=== PATIENT | female | born 1930 | race Caucasian/White ===

== ENCOUNTER 2017-01-27 22:37 | Inpatient (IN) | payer MEDICARE, OTHER ==
--- NOTE | 2017-01-27 23:41 | EDM.PDOC ---
ED HPI GENERAL MEDICAL PROBLEM - General Chief Complaint: Genitourinary Problem Stated Complaint: [facility] Time Seen by Provider: 01/27/17 22:41 Source of Information: Reports: Patient, EMS, Family (2 sons and [id number] ), Old records, RN notes reviewed History Limitations: Reports: No limitations - History of Present Illness INITIAL COMMENTS - FREE TEXT/NARRATIVE: EMS arrival No treatment prior to arrival Chief complaint Urinary symptoms, generalized weakness, achiness HPI 86-year-old female who was living independently until a few months ago. In June she fell and sustained a fracture C3, never wore the brace very much because it was so uncomfortable, she still feels cracking in her neck. Decreasing mobility over the ensuing months, and in the last week she has a motorized wheelchair for use at home. Previously she was using a walker to get around. In the last 3 weeks she's had symptoms of urinary frequency, urgency, passing small amounts, and burning inside when she urinates. She was treated with a course of what sounds like one form of doxycycline for 10 days without improvement and is now on the sixth they have a second course of antibiotics doxycycline monohydrate. Still her urinary symptoms are unchanged. No fever but she has felt hot and cold lately She has chronic back pain which is gradually been getting worse. It is harder for her to move around. She's had 3 previous back surgeries. Since she fell in June she's had bad pain in the right shoulder with decreased mobility. She has chronic pain in her hips and knees and chronic fluid retention in her legs. History of coronary artery disease, myocardial infarction, multiple stents. Aortic stenosis. Ventral hernia History of chronic diarrhea but since she's been on a back she's had constipation more. She's been straining more to push out her stools and this is near hernia stand out more. She is not a candidate for surgical repair of her aortic valve, hernia, or joints because of her pre-existing health problems. Type 2 diabetes, with renal disease, chronic kidney disease. September this year she had echocardiogram showing decreased left ventricular function without focal wall motion abnormalities, ejection fraction 50-55%, moderately severe aortic stenosis. She also has a bedsore on the left buttock that has been present for over a year. On it tonight with her urinary symptoms the lack of improvement thereof, her generalized achiness, and weakness, she decided she couldn't take it anymore and asked her son to have her bring her to the emergency room. Unable to get her up because of her weakness, she was transferred by ambulance. There has been some discussion over the last few months about putting her into a long-term but would be expensive for her. She has been having someone stay with her for the last 3 months, has also had home care including physical therapy to help strengthen her muscles but it's reached a point that she is making little progress. - Related Data Allergies Allergy/AdvReac Type Severity Reaction Status Date / Time ciprofloxacin [From Cipro] Allergy Unknown Cannot Verified 01/28/17 00:17 Remember ciprofloxacin HCl Allergy Unknown Cannot Verified 01/28/17 00:17 [From Cipro] Remember flunisolide [From Aerobid] Allergy Unknown Cannot Verified 01/28/17 00:17 Remember lisinopril Allergy Unknown Cannot Verified 01/28/17 00:17 Remember morphine Allergy Unknown Confusion Verified 01/28/17 00:17 NSAIDS (Non-Steroidal Allergy Unknown Cannot Verified 01/28/17 00:17 Anti-Inflamma Remember pregabalin [From Lyrica] Allergy Unknown Confusion Verified 01/28/17 00:17 sulfamethoxazole Allergy Unknown Cannot Verified 01/28/17 00:17 [From Bactrim] Remember trimethoprim [From Bactrim] Allergy Unknown Cannot Verified 01/28/17 00:17 Remember [id number]-Clf-Jiz Reductase Allergy Cannot Verified 01/28/17 00:17 Inhibitor Remember amoxicillin [Amoxicillin] AdvReac Unknown Nausea Verified 01/28/17 00:17 rosuvastatin calcium AdvReac Unknown Muscle Verified 01/28/17 00:17 [From Crestor] Aches Home Meds: Home Meds Aspirin [Ecotrin] 81 mg PO DAILY 10/18/13 [History] Furosemide [Lasix] 40 mg PO BID 10/18/13 [History] Hydrocodone/Acetaminophen [[place] 10-325] 1 tab PO BID PRN 10/18/13 [History] Ketoconazole [Nizoral 2% Crm] 1 applic TOP BID PRN 10/18/13 [History] Levothyroxine Sodium [Synthroid] 112 mcg PO DAILY 10/18/13 [History] Nitroglycerin [Nitrostat] 0.4 mg SL ASDIRECTED PRN 10/18/13 [History] Ranitidine [Zantac] 150 mg PO BID 10/18/13 [History] Triamcinolone Acetonide [Kenalog 0.1% Crm] 1 applic TOP TID PRN 10/18/13 [ History] Citalopram [Citalopram HBr] 60 mg PO DAILY 12/08/13 [History] Gabapentin [Neurontin] 300 mg PO TID 04/15/15 [History] Spironolactone [Aldactone] 25 mg PO BID 04/15/15 [History] clonazePAM [Klonopin] 0.5 tab PO BID PRN 04/15/15 [History] Diclofenac Sodium [Voltaren 1%] 1 applic TOP BID PRN 04/17/16 [History] Metolazone [Zaroxolyn] 2.5 mg PO .MWF PRN 04/17/16 [History] Insulin Aspart [NovoLOG] 6 unit SQ TIDAC 07/22/16 [History] Insulin Detemir [Levemir] 18 unit SUBCUT BEDTIME 07/22/16 [History] Bifidobacterium Infantis [Align] 1 cap PO BID 01/28/17 [History] Calcitriol [Rocaltrol] 1 cap PO DAILY 01/28/17 [History] Sennosides/Docusate Sodium [Sennosides-Docusate Sodium] 1 tab PO BID PRN [History] Past Medical History HEENT History: Reports: Hard of hearing, Impaired vision Cardiovascular History: Reports: [place], Stents Gastrointestinal History: Reports: GERD Other Gastrointestinal History: hernia abd Genitourinary History: Reports: Urinary incontinence Other Genitourinary History: kidney dx Other Musculoskeletal History: fisssion lower spine Neurological History: Reports: Cerebral aneurysms Other Neuro History: 1981 no residual Psychiatric History: Reports: Depression Endocrine/Metabolic History: Reports: Diabetes, type II, Hypothyroidism Other Endocrine/Metabolic History: on insulin Other Oncologic History: "something by my eye, they said it was cancer but then they removed it and it's gone" Other Dermatologic History: c/o boil on coccyx - Infectious Disease History Infectious Disease History: Reports: Chicken pox, Measles, Mumps - Past Surgical History HEENT Surgical History: Reports: None Cardiovascular Surgical History: Reports: Coronary artery stent Other Neurological Surgeries/Procedures: vertabrae fusions Dermatological Surgical History: Reports: None Social & Family History - Tobacco Use Smoking Status *Q: Never Smoker Second Hand Smoke Exposure: No - Alcohol Use Days Per Week of Alcohol Use: 0 - Recreational Drug Use Recreational Drug Use: No ED ROS GENERAL - Review of Systems Review Of Systems: See Below Constitutional: Reports: chills (And flushes), weakness, fatigue, decreased appetite. Denies: fever, diaphoresis, weight loss HEENT: Reports: Hearing loss (Chronic). Denies: Ear pain, Rhinitis, Throat pain , Vision change Respiratory: Reports: Cough (Mild). Denies: Shortness of Breath, Pleuritic Chest Pain Cardiovascular: Reports: Dyspnea on exertion. Denies: Chest pain, Lightheadedness, Palpitations, Syncope Endocrine: Reports: fatigue GI/Abdominal: Reports: Abdominal pain, Constipation (More recently), Diarrhea ( Previously), Decreased appetite. Denies: Nausea, Vomiting : Reports: frequency, incontinence (Despite nocturia at night she often wakes up unaware that she's wet herself, has taken to wearing depends), urgency, other (Despite urgency to urinate often passes very little urine). Denies: dysuria Musculoskeletal: Reports: shoulder pain (Especially on the right), leg pain ( Especially both hips), joint swelling (Knees), other (Edema of the lower extremities) Skin: Reports: dryness, erythema (Redness and thickening of the skin below the knees bilaterally) Neurological: Reports: Numbness, Paresthesia, Difficulty Walking (Generalized weakness). Denies: Confusion, Syncope, Tremors Psychiatric: Reports: Anxiety, Other (Frustration) Hematologic/Lymphatic: Reports: no symptoms Immunologic: Reports: no symptoms ED EXAM, GENERAL - Physical Exam Exam: See Below Exam Limited By: No limitations General Appearance: alert, mild distress, other (Alert, responds appropriately to all questions, mood generally downcast, achy with any movement, vital signs show mild elevation of blood pressure otherwise within normal limits, afebrile) Eye Exam: bilateral eye: EOMI, normal inspection Ears: normal external exam, normal canal, hearing loss (Chronic, hearing on the left) Nose: normal inspection, normal mucosa Throat/Mouth: Normal oropharynx, Normal voice, Other (Most molar is missing, there are 2 worn off molar stumps that are infected) Neck: supple, limited range of motion. No: lymphadenopathy (R), lymphadenopathy (L), tender lateral Respiratory/Chest: no respiratory distress, lungs clear, normal breath sounds, no accessory muscle use Cardiovascular: regular rate, rhythm, systolic murmur (Loudest in the right parasternal area) GI/Abdominal: normal bowel sounds, soft, non tender, no organomegaly, hernia ( Central abdominal hernia) Rectal (Female) Exam: Other (On the medial aspect of the left buttock is a 2 cm diameter shallow erosion with a dry eschar) Extremities: pedal edema (Extending up to the ankles and to the mid calfs with lichenification and peau d'orange appearance of the skin), leg pain, limited range of motion (Decreased range of motion knees and hips, swelling of the knees bilaterally, chronic), redness (Of the edematous areas of the legs). No: increased warmth Neurological: alert, normal cognition, no motor/sensory deficits Psychiatric: anxious, depressed mood. No: tearful Skin Exam: Warm, Dry, Normal color, Other (Stasis changes of the legs) Course - Vital Signs Last Recorded V/S: Last Vital Signs Temp 36.5 C 01/27/17 22:45 Pulse 76 01/27/17 23:30 Resp 18 01/27/17 23:30 BP 149/43 H 01/27/17 23:30 Pulse Ox 93 L 01/27/17 23:30 - Orders/Labs/Meds Orders: Active Orders 24 hr Category Date Time Status EKG Documentation Completion [RC] ASDIRECTED Care 01/27/17 23:25 Active Insert Urinary Catheter [OM.PC] Q24H Care 01/27/17 23:30 Ordered Urinary Catheter Assessment [RC] ASDIRECTED Care 01/27/17 23:25 Active Chest 1V Frontal [CR] Stat Exams 01/27/17 23:25 Taken CULTURE URINE [RM] Stat Lab 01/28/17 01:03 Ordered EKG 12 Lead [EK] Routine Ther 01/27/17 23:25 Ordered Labs: Laboratory Tests 01/27/17 01/27/17 01/28/17 Range/Units 23:25 23:25 00:15 WBC 9.0 (4.5-11.0) K/uL RBC 4.02 (3.30-5.50) M/uL Hgb 11.8 L (12.0-15.0) g/dL Hct 36.5 (36.0-48.0) % MCV 91 (80-98) fL MCH 29 (27-31) pg MCHC 32 (32-36) % Plt Count 246 (150-400) K/uL Sodium 138 L (140-148) mmol/L Potassium 4.2 (3.6-5.2) mmol/L Chloride 101 (100-108) mmol/L Carbon Dioxide 32 (21-32) mmol/L Anion Gap 9.2 (5.0-14.0) mmol/L BUN 41 H (7-18) mg/dL Creatinine 1.7 H (0.6-1.0) mg/dL Est Cr Clr Drug Dosing 17.59 mL/min Estimated GFR (MDRD) 28 L (>60) Glucose 103 (74-106) mg/dL Calcium 8.1 L (8.5-10.1) mg/dL Total Bilirubin 0.4 (0.2-1.0) mg/dL AST 15 (15-37) U/L ALT 22 (12-78) U/L Alkaline Phosphatase 97 (46-116) U/L Troponin I < 0.017 (0.000-0.056) ng/mL Total Protein 6.9 (6.4-8.2) g/dL Albumin 3.3 L (3.4-5.0) g/dL Globulin 3.6 H (2.3-3.5) g/dL Albumin/Globulin Ratio 0.9 L (1.2-2.2) Urine Color Yellow Urine Appearance Clear Urine pH 5.0 (4.5-8.0) Ur Specific [place] 1.015 (1.008-1.030) Urine Protein Negative (NEGATIVE) mg/dL Urine Glucose (UA) Normal (NEGATIVE) mg/dL Urine Ketones Negative (NEGATIVE) mg/dL Urine Occult Blood Negative (NEGATIVE) Urine Nitrite Negative (NEGATIVE) Urine Bilirubin Negative (NEGATIVE) Urine Urobilinogen Normal (NORMAL) mg/dL Ur Leukocyte Esterase Negative (NEGATIVE) Urine RBC 0-5 (0-5) Urine WBC 0-5 (0-5) Ur Epithelial Cells Few Amorphous Sediment Moderate Urine Bacteria Rare Urine Mucus Few Meds: Medications Discontinued Medications Generic Name Dose Route Start Last Admin Trade Name Freq PRN Reason Stop Dose Admin Hydrocodone Bitart/Acetaminophen 1 tab 01/27/17 23:44 01/28/17 00:05 [place] 325-5 Mg PO 01/27/17 23:45 1 tab ONETIME ONE Administration - Re-Assessments/Exams Free Text/Narrative Re-Assessment/Exam: 01/27/17 23:49 86-year-old female whose become increasingly weak especially since she had a fall in June with a fracture of her third cervical vertebra, chronic hearing loss, diabetes with chronic any disease, coronary artery disease with previous stents, aortic stenosis, ventral hernia. Generalized weakness. 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, 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 On-call PA notified 01/28/17 01:01 01/28/17 01:04 Departure - Departure Time of Disposition: 01:02 Disposition: Refer to Observation Condition: poor Clinical Impression: Generalized weakness, Polyarthralgia, Diabetes mellitus with kidney disease Referrals: PCP,None [Primary Care Provider] - - My Orders Last 24 Hours: My Active Orders 01/27/17 23:25 EKG Documentation Completion [RC] ASDIRECTED Urinary Catheter Assessment [RC] ASDIRECTED Chest 1V Frontal [CR] Stat EKG 12 Lead [EK] Routine 01/27/17 23:30 Insert Urinary Catheter [OM.PC] Q24H 01/28/17 01:03 CULTURE URINE [RM] Stat - Assessment/Plan Last 24 Hours: My Active Orders 01/27/17 23:25 EKG Documentation Completion [RC] ASDIRECTED Urinary Catheter Assessment [RC] ASDIRECTED Chest 1V Frontal [CR] Stat EKG 12 Lead [EK] Routine 01/27/17 23:30 Insert Urinary Catheter [OM.PC] Q24H 01/28/17 01:03 CULTURE URINE [RM] Stat
[2017-01-27] MEDS ORDERED: Acetaminophen/HYDROcodone 325-5 MG Tab PO ONE (23:44)
--- NOTE | 2017-01-28 01:57 | PCM.HP ---
H&P History of Present Illness - General Date of Service: 01/27/17 Admit Problem/Dx: Admission Diagnosis/Problem Admission Diagnosis/Problem Weakness Source of Information: Patient, Family (2 son; Pradip and Garfield and [id number]) - History of Present Illness Initial Comments - Free Text/Narative: Urinary symptoms, generalized weakness, achiness HPI 86-year-old female who was living independently until a few months ago. In June she fell and sustained a fracture C3, never wore the brace very much because it was so uncomfortable, she still feels cracking in her neck. Decreasing mobility over the ensuing months, and in the last week she has a motorized wheelchair for use at home. Previously she was using a walker to get around. In the last 3 weeks she's had symptoms of urinary frequency, urgency, passing small amounts, and burning inside when she urinates. She was treated with a course of what sounds like one form of doxycycline for 10 days without improvement and is now on the sixth they have a second course of antibiotics doxycycline monohydrate. Still her urinary symptoms are unchanged. No fever but she has felt hot and cold lately She has chronic back pain which is gradually been getting worse. It is harder for her to move around. She's had 3 previous back surgeries. Since she fell in June she's had bad pain in the right shoulder with decreased mobility. She has chronic pain in her hips and knees and chronic fluid retention in her legs. History of coronary artery disease, myocardial infarction, multiple stents. Aortic stenosis. Ventral hernia History of chronic diarrhea but since she's been on a back she's had constipation more. She's been straining more to push out her stools and this is near hernia stand out more. She is not a candidate for surgical repair of her aortic valve, hernia, or joints because of her pre-existing health problems. Type 2 diabetes, with renal disease, chronic kidney disease. September this year she had echocardiogram showing decreased left ventricular function without focal wall motion abnormalities, ejection fraction 50-55%, moderately severe aortic stenosis. She also has a bedsore on the left buttock that has been present for over a year. On it tonight with her urinary symptoms the lack of improvement thereof, her generalized achiness, and weakness, she decided she couldn't take it anymore and asked her son to have her bring her to the emergency room. Unable to get her up because of her weakness, she was transferred by ambulance. There has been some discussion over the last few months about putting her into a intermediate but would be expensive for her. She has been having someone stay with her for the last 3 months, has also had home care including physical therapy to help strengthen her muscles but it's reached a point that she is making little progress. Onset of Symptoms: Reports: gradual Duration of Symptoms: Reports: Week(s):, Getting worse Location: Reports: generalized Quality: Reports: Same as previous episode Improves with: Reports: Rest Worsens with: Reports: Movement Associated Symptoms: Reports: weakness - Related Data Allergies/Adverse Reactions: Allergies Allergy/AdvReac Type Severity Reaction Status Date / Time ciprofloxacin [From Cipro] Allergy Unknown Cannot Verified 01/28/17 00:17 Remember ciprofloxacin HCl Allergy Unknown Cannot Verified 01/28/17 00:17 [From Cipro] Remember flunisolide [From Aerobid] Allergy Unknown Cannot Verified 01/28/17 00:17 Remember lisinopril Allergy Unknown Cannot Verified 01/28/17 00:17 Remember morphine Allergy Unknown Confusion Verified 01/28/17 00:17 NSAIDS (Non-Steroidal Allergy Unknown Cannot Verified 01/28/17 00:17 Anti-Inflamma Remember pregabalin [From Lyrica] Allergy Unknown Confusion Verified 01/28/17 00:17 sulfamethoxazole Allergy Unknown Cannot Verified 01/28/17 00:17 [From Bactrim] Remember trimethoprim [From Bactrim] Allergy Unknown Cannot Verified 01/28/17 00:17 Remember Frtvkhy-[id number]-Dbh Reductase Allergy Cannot Verified 01/28/17 00:17 Inhibitor Remember amoxicillin [Amoxicillin] AdvReac Unknown Nausea Verified 01/28/17 00:17 rosuvastatin calcium AdvReac Unknown Muscle Verified 01/28/17 00:17 [From Crestor] Aches Home Medications: Home Meds Aspirin [Ecotrin] 81 mg PO DAILY 10/18/13 [History] Furosemide [Lasix] 20 mg PO BID 10/18/13 [History] Hydrocodone/Acetaminophen [[place] 10-325] 0.5 - 1 tab PO BID PRN 10/18/13 [ History] Ketoconazole [Nizoral 2% Crm] 1 applic TOP BID PRN 10/18/13 [History] Levothyroxine Sodium [Synthroid] 112 mcg PO DAILY 10/18/13 [History] Nitroglycerin [Nitrostat] 0.4 mg SL ASDIRECTED PRN 10/18/13 [History] Ranitidine [Zantac] 150 mg PO BID 10/18/13 [History] Triamcinolone Acetonide [Kenalog 0.1% Crm] 1 applic TOP TID PRN 10/18/13 [ History] Citalopram [Citalopram HBr] 60 mg PO DAILY 12/08/13 [History] Gabapentin [Neurontin] 300 mg PO TID 04/15/15 [History] Spironolactone [Aldactone] 25 mg PO BID 04/15/15 [History] clonazePAM [Klonopin] 0.5 tab PO BID PRN 04/15/15 [History] Diclofenac Sodium [Voltaren 1%] 1 applic TOP BID PRN 04/17/16 [History] Metolazone [Zaroxolyn] 2.5 mg PO .MWF PRN 04/17/16 [History] Insulin Aspart [NovoLOG] 3 unit SQ TIDAC 07/22/16 [History] Insulin Detemir [Levemir] 8 unit SUBCUT BEDTIME 07/22/16 [History] Bifidobacterium Infantis [Align] 1 cap PO BID 01/28/17 [History] Calcitriol [Rocaltrol] 1 cap PO DAILY 01/28/17 [History] Sennosides/Docusate Sodium [Sennosides-Docusate Sodium] 1 tab PO BID PRN [History] Past Medical History HEENT History: Reports: Hard of hearing, Impaired vision Other HEENT History: 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 hyperlipidemia Gastrointestinal History: Reports: GERD Other Gastrointestinal History: hernia abd Genitourinary History: Reports: Urinary incontinence Other Genitourinary History: kidney dx [employer] History: Reports: Musculoskeletal History: Reports: Osteoarthritis, Osteoporosis, Other (see below ) Other Musculoskeletal History: fisssion lower spine Neurological History: Reports: Cerebral aneurysms Other Neuro History: 1981 no residual Psychiatric History: Reports: Depression Endocrine/Metabolic History: Reports: Diabetes, type II, Hypothyroidism Other Endocrine/Metabolic History: on insulin Oncologic (Cancer) History: Reports: Other (see below) Other Oncologic History: "something by my eye, they said it was cancer but then they removed it and it's gone" Dermatologic History: Reports: Cellulitis, Decubitus ulcer, Other (see below) Other Dermatologic History: c/o boil on coccyx - Infectious Disease History Infectious Disease History: Reports: Chicken pox, Measles, Mumps - Past Surgical History HEENT Surgical History: Reports: None Cardiovascular Surgical History: Reports: Coronary artery stent Other Neurological Surgeries/Procedures: vertabrae fusions Dermatological Surgical History: Reports: None Social & Family History - Tobacco Use Smoking Status *Q: Never Smoker Second Hand Smoke Exposure: No - Caffeine Use Caffeine Use: Reports: Coffee, Tea - Alcohol Use Days Per Week of Alcohol Use: 0 - Recreational Drug Use Recreational Drug Use: No Drug Use in Last 12 Months: Yes Recreational Drug Type: Reports: Other (see below) Other Recreational Drug Type: hydrocodone dependency - Living Situation & Occupation Living situation: Reports: alone Occupation: retired (has two Sons, lives alone but for the past 3 months has family staying with her.) H&P Review of Systems - Review of Systems: Review Of Systems: See Below General: Reports: malaise, weakness HEENT: Reports: no symptoms Pulmonary: Reports: No Symptoms Cardiovascular: Reports: no symptoms Gastrointestinal: Reports: Abdominal pain (ventral hernia ), Constipation Genitourinary: Reports: dysuria, frequency, burning, pain, urgency Musculoskeletal: Reports: neck pain (C3 fracture, does not wear brace, causes pain and stiffness), back pain (3 surgeries), leg pain, muscle pain, muscle stiffness Skin: Reports: rash (bilateral lower leg edema and dermatitis), wound ( decubitus ulcer to left buttocks for one year) Psychiatric: Reports: no symptoms Neurological: Reports: No Symptoms Hematologic/Lymphatic: Reports: no symptoms Immunologic: Reports: no symptoms Exam - Exam Exam: See Below - Vital Signs Vital Signs: Last Vital Signs Temp 36.5 C 01/27/17 22:45 Pulse 76 01/27/17 23:30 Resp 18 01/27/17 23:30 BP 149/43 H 01/27/17 23:30 Pulse Ox 93 L 01/27/17 23:30 Weight: 88.451 kg - Exam Quality Assessment: skin breakdown (decub ulcer x 1 year to left buttocks.) General: alert, oriented, cooperative HEENT: PERRLA, Conjunctiva clear, EOMI, Mucosa moist & pink, Nares patent, Posterior pharynx clear, Pupils equal, Pupils reactive, TMs clear, Other (hard of hearing, natural teeth) Neck: trachea midline Lungs: Clear to auscultation, Normal respiratory effort, Decreased breath sounds Cardiovascular: regular rate, regular rhythm, normal S1, normal S2 Abdomen: normal bowel sounds, soft, other (hernia noted, 10cm circular, non tender to palpation) (Female) Exam: Deferred Rectal (Female) Exam: Deferred Extremities: other (bilateral lower legs with venous statis; bright pink , warm to touch, edema) Skin: warm, rash (bilateral lower legs, yeast rash to groin and breast folds.) Neurological: strength equal bilateral, normal speech, normal tone Neuro Extensive - Mental Status: alert, oriented x3, normal mood/affect, normal cognition Psychiatric: alert, normal affect, normal mood Physical Exam Comments:: 86 year old female of advance age, neat and well groomed. alert and orientated to person, place and time. appears frail. 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 pain and numbness in arms. has neck and back pain. - Patient Data Lab Results last 24 hrs: Laboratory Results - last 24 hr 01/27/17 01/27/17 01/28/17 Range/Units 23:25 23:25 00:15 WBC 9.0 (4.5-11.0) K/uL RBC 4.02 (3.30-5.50) M/uL Hgb 11.8 L (12.0-15.0) g/dL Hct 36.5 (36.0-48.0) % MCV 91 (80-98) fL MCH 29 (27-31) pg MCHC 32 (32-36) % Plt Count 246 (150-400) K/uL Sodium 138 L (140-148) mmol/L Potassium 4.2 (3.6-5.2) mmol/L Chloride 101 (100-108) mmol/L Carbon Dioxide 32 (21-32) mmol/L Anion Gap 9.2 (5.0-14.0) mmol/L BUN 41 H (7-18) mg/dL Creatinine 1.7 H (0.6-1.0) mg/dL Est Cr Clr Drug Dosing 17.59 mL/min Estimated GFR (MDRD) 28 L (>60) Glucose 103 (74-106) mg/dL Calcium 8.1 L (8.5-10.1) mg/dL Total Bilirubin 0.4 (0.2-1.0) mg/dL AST 15 (15-37) U/L ALT 22 (12-78) U/L Alkaline Phosphatase 97 (46-116) U/L Troponin I < 0.017 (0.000-0.056) ng/mL Total Protein 6.9 (6.4-8.2) g/dL Albumin 3.3 L (3.4-5.0) g/dL Globulin 3.6 H (2.3-3.5) g/dL Albumin/Globulin Ratio 0.9 L (1.2-2.2) Urine Color Yellow Urine Appearance Clear Urine pH 5.0 (4.5-8.0) Ur Specific [place] 1.015 (1.008-1.030) Urine Protein Negative (NEGATIVE) mg/dL Urine Glucose (UA) Normal (NEGATIVE) mg/dL Urine Ketones Negative (NEGATIVE) mg/dL Urine Occult Blood Negative (NEGATIVE) Urine Nitrite Negative (NEGATIVE) Urine Bilirubin Negative (NEGATIVE) Urine Urobilinogen Normal (NORMAL) mg/dL Ur Leukocyte Esterase Negative (NEGATIVE) Urine RBC 0-5 (0-5) Urine WBC 0-5 (0-5) Ur Epithelial Cells Few Amorphous Sediment Moderate Urine Bacteria Rare Urine Mucus Few Result Diagrams: 01/27/17 23:25 01/27/17 23:25 *Q Meaningful Use (ADM) - VTE *Q VTE Criteria *Q: - Stroke *Q Stroke Criteria *Q: - AMI *Q AMI Criteria *Q: - Problem List (1) Urinary tract infection SNOMED Code(s): 64151144 ICD Code: N39.0 - URINARY TRACT INFECTION, SITE NOT SPECIFIED Status: Acute Priority: Low Current Visit: Yes Qualifiers: Hematuria presence: without hematuria (2) Diabetes mellitus with kidney disease SNOMED Code(s): 47866036, 85079078 ICD Code: E11.21 - TYPE 2 DIABETES MELLITUS WITH DIABETIC NEPHROPATHY Status: Acute Priority: High Current Visit: Yes (3) Generalized weakness SNOMED Code(s): 16961842 ICD Code: R53.1 - WEAKNESS Status: Acute Priority: High Current Visit: Yes (4) Polyarthralgia Status: Acute Priority: High Current Visit: Yes (5) Cervical spine fracture SNOMED Code(s): 604879695 ICD Code: S12.9XXA - FRACTURE OF NECK, UNSPECIFIED, INITIAL ENCOUNTER Status: Acute Priority: Medium Current Visit: No Qualifiers: Encounter type: subsequent encounter Cervical vertebra fracture level: C3 Fracture type: closed Fracture alignment: nondisplaced (6) Chronic kidney disease stage 3 SNOMED Code(s): 612782933 ICD Code: N18.3 - CHRONIC KIDNEY DISEASE, STAGE 3 (MODERATE) Status: Chronic Priority: High Current Visit: No Problem List Initiated/Reviewed/Updated: Yes Orders Last 24hrs: Active Orders 24 hr Category Date Time Status Patient Status Manage Transfer [TRANSFER] Routine ADT 01/28/17 01:24 Ordered Cardiac Monitoring [RC] .As Directed Care 01/28/17 01:24 Ordered EKG Documentation Completion [RC] ASDIRECTED Care 01/27/17 23:25 Active Insert Urinary Catheter [OM.PC] Q24H Care 01/27/17 23:30 Ordered Urinary Catheter Assessment [RC] ASDIRECTED Care 01/27/17 23:25 Active Chest 1V Frontal [CR] Stat Exams 01/27/17 23:25 Taken CULTURE URINE [RM] Stat Lab 01/28/17 01:11 Received Resuscitation Status Routine Resus Stat 01/28/17 01:25 Ordered EKG 12 Lead [EK] Routine Ther 01/27/17 23:25 Ordered Assessment/Plan Comment:: ASSESSMENT / PLAN -This is a 86 year old female present to ER via EMS with complaints of weakness. She is unable to stand today due to weakness and pain. She decided to come to the hospital/ER for further care and treatment Plan Weakness -Admit to [address] [place] [address] for further monitoring -Telemetry -Oxygen per nasal cannula prn -IV fluids for rehydration NS at 75 mL per hour -Advise to notify nurses of any chest pain or other symptoms -And a.m. labs: CBC, BMP Diabetes type 2, CKD -blood glucose check before meals and at bedtime -Insulin Neck fracture C3: 06/2016 -medicate for pain -referral to OT and PT UTI -Order for a CT Abdomen-pelvis without contrast in a.m. to evaluate hernia and chronic abdominal pain -continue current medication. Polyarthralgia -g. bed -pain medication ordered -evaluation by PT and OT Maintenance issues -Orders home meds: -Nutrition: diabetic diet -Simpson catheter; place in ER -DVT: SCD CODE STATUS: DNR/DNI Admission status: Admit to [address] [place] [address] Admission justification. This patient will be admitted for inpatient services and is medically appropriate meeting medical necessity for inpatient admission as outlined in my documentation. I reasonably expect the patient will require inpatient services that span. Time over 2 midnights. I reasonably expect this patient to be discharged or transferred within 96 hours after admission to the [facility]. Disposition;home or rehab Primary care provider: Dr. Ho and RAHEL Olvera
[2017-01-28] MEDS ORDERED: Acetaminophen 325 MG Tab PO PRN (02:21)
[2017-01-28] MEDS ORDERED: Ondansetron 4 MG/2 ML SDV IV PRN (02:21)
[2017-01-28] MEDS ORDERED: ClonazePAM 0.5 MG Tab PO PRN (02:21)
[2017-01-28] MEDS ORDERED: Albuterol 0.083% 2.5 MG/3 ML Neb Soln NEB PRN (02:21)
[2017-01-28] MEDS ORDERED: Temazepam 15 MG Cap PO PRN (02:21)
[2017-01-28] MEDS ORDERED: Ketoconazole 2% Crm 30 GM Tube TOP PRN (02:21)
[2017-01-28] MEDS ORDERED: Bisacodyl 5 MG Tab PO PRN (02:21)
[2017-01-28] MEDS ORDERED: LORazepam 2 MG/ML MDV IV PRN (02:21)
[2017-01-28] MEDS ORDERED: Sodium Chloride 0.9% 1,000 ML IV SCH (02:21)
[2017-01-28] MEDS ORDERED: Metolazone 2.5 MG Tab PO PRN (02:21)
[2017-01-28] MEDS ORDERED: Ondansetron 4 MG Tab.DIS PO PRN (02:21)
[2017-01-28] MEDS ORDERED: Nitroglycerin 0.4 MG Tab.SL SL PRN (02:21)
[2017-01-28] MEDS ORDERED: Docusate Sodium 100 MG Cap PO PRN (02:21)
[2017-01-28] MEDS: Aspirin 81 MG Tab.EC PO SCH (08:54)
[2017-01-28] MEDS: Gabapentin 300 MG Cap PO SCH ×3 (08:54→20:12)
[2017-01-28] MEDS: Furosemide 20 MG Tab PO SCH ×2 (08:54→14:30)
[2017-01-28] MEDS: Spironolactone 25 MG Tab PO SCH ×2 (08:54→20:12)
[2017-01-28] MEDS: Levothyroxine 112 MCG Tab PO SCH (08:54)
[2017-01-28] MEDS: Insulin Aspart 100 Units/ML 3 ML Pen SUBCUT SCH ×4 (08:56→21:47)
[2017-01-28] MEDS: Citalopram 20 MG Tab PO SCH (09:00)
[2017-01-28] MEDS: Triamcinolone Acetonide 0.1% Crm 80 GM Tube TOP PRN (09:01)
--- NOTE | 2017-01-28 09:39 | CR ---
Chest 1V Frontal HISTORY: Weakness COMPARISON: Prior chest x-ray 06/30/2015. Hyperinflation. Mild cardiomegaly. Left-sided effusion underlying infiltrate not excluded. Right frank ng is clear. Mild increased interstitial change could represent mild edema or inflammatory process. Impression: Stable mild cardiomegaly. Left-sided effusion with probable left lung base infiltrate.
--- NOTE | 2017-01-28 10:08 | CT ---
Abdomen Pelvis wo Cont HISTORY: Low abdominal pain, ventral hernia. Dose: Total DLP 1150. COMPARISON: Prior CT scan 10/31/2013. FINDINGS: Limited study due to lack of IV and oral contrast. Small pleural effusions at both lung ba ses. There is some diastases of the anterior abdominal wall at the level of the umbilicus. I do not see true hernia. Findings similar to prior study. Prior cholecystectomy. The liver, spleen, pancreas, left adrenal gland abdominal aorta appear unrema rkable there is atrophy of both kidneys. 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 No b owel obstruction. The remainder the pelvis is unremarkable. Impression: 1. Diastases anterior abdominal wall no hernia seen. 2. New small bilateral pleural effusions.
[2017-01-28] MEDS ORDERED: cefTAZidime 1 GM in Sodium Chloride 0.9% 50 ML IV SCH ×4 (13:00)
[2017-01-28] MEDS: Azithromycin 500 MG in Sodium Chloride 0.9% 250 ML IV SCH (13:13)
[2017-01-28] MEDS: Acetaminophen/HYDROcodone 325-5 MG Tab PO PRN ×2 (13:22→20:16)
--- NOTE | 2017-01-28 13:22 | PCM.PN ---
- General Info Date of Service: 01/28/17 Functional Status: Reports: pain controlled, urinating - Review of Systems General: Reports: Fever, Weakness. Denies: Chills Pulmonary: Reports: shortness of breath, cough. Denies: pleuritic chest pain, sputum, hemoptysis, wheezing Cardiovascular: Reports: Dyspnea on Exertion. Denies: Chest Pain, Palpitations , Orthopnea, PND, Edema Gastrointestinal: Reports: No symptoms Systems Review Comment:: This patient is an 86-year-old woman who was admitted through the emergency department with symptoms of progressive weakness. She's had a history of recent recurrent urinary tract infections, no evidence of infection was noted on urinalysis at the time of admission. CT scan of the abdomen and pelvis showed no obvious abnormalities to explain current symptoms. Chest x-ray does suggest infiltrate consistent with pneumonia. - Patient Data Vitals - most recent: Last Vital Signs Temp 96.2 F 01/28/17 10:45 Pulse 66 01/28/17 10:45 Resp 18 01/28/17 10:45 BP 110/43 L 01/28/17 10:45 Pulse Ox 99 01/28/17 10:45 Weight - most recent: 194 lb 3.636 oz I&O - last 24 hours: Intake & Output 01/27/17 01/28/17 01/28/17 22:59 06:59 14:59 Intake Total 238 440 Output Total 450 675 Balance -212 -235 Lab Results last 24 hrs: Laboratory Results - last 24 hr 01/28/17 01/28/17 Range/Units 05:15 05:15 WBC 8.8 (4.5-11.0) K/uL RBC 3.46 (3.30-5.50) M/uL Hgb 10.1 L (12.0-15.0) g/dL Hct 31.6 L (36.0-48.0) % MCV 91 (80-98) fL MCH 29 (27-31) pg MCHC 32 (32-36) % Plt Count 219 (150-400) K/uL Neut % (Auto) 68 H (36-66) % Lymph % (Auto) 19 L (24-44) % [place] % (Auto) 10 H (2-6) % Eos % (Auto) 2 (2-4) % Baso % (Auto) 1 (0-1) % Sodium 138 L (140-148) mmol/L Potassium 3.9 (3.6-5.2) mmol/L Chloride 103 (100-108) mmol/L Carbon Dioxide 32 (21-32) mmol/L Anion Gap 6.9 (5.0-14.0) mmol/L BUN 39 H (7-18) mg/dL Creatinine 1.5 H (0.6-1.0) mg/dL Est Cr Clr Drug Dosing 19.94 mL/min Estimated GFR (MDRD) 33 L (>60) Glucose 103 (74-106) mg/dL Calcium 7.8 L (8.5-10.1) mg/dL Med Orders - Current: Current Medications Acetaminophen (Tylenol) 650 mg PO Q4H PRN PRN Reason: Pain (Mild 1-3)/fever Hydrocodone Bitart/Acetaminophen ([place] 325-5 Mg) 1 tab PO Q4H PRN PRN Reason: Pain (moderate 4-6) Albuterol (Proventil Neb Soln) 2.5 mg NEB Q4H PRN PRN Reason: Shortness Of Breath/wheezing Aspirin (Halfprin) 81 mg PO DAILY [facility] Last Admin: 01/28/17 08:54 Dose: 81 mg Bisacodyl (Dulcolax) 5 mg PO DAILY PRN PRN Reason: Constipation Citalopram Hydrobromide (Celexa) 60 mg PO DAILY [facility] Last Admin: 01/28/17 09:00 Dose: 60 mg Clonazepam (Klonopin) 0.25 mg PO BID PRN PRN Reason: Anxiety Docusate Sodium (Colace) 100 mg PO BID PRN PRN Reason: Constipation Furosemide (Lasix) 20 mg PO BIDDIURETIC [facility] Last Admin: 01/28/17 08:54 Dose: 20 mg Gabapentin (Neurontin) 300 mg PO TID [facility] Last Admin: 01/28/17 08:54 Dose: 300 mg Azithromycin 500 mg/ Sodium (Chloride) 250 mls @ 250 mls/hr IV Q24H [facility] Last Admin: 01/28/17 13:13 Dose: 250 mls/hr Ceftriaxone Sodium 1 gm/ (Sodium Chloride) 50 mls @ 100 mls/hr IV Q24H [facility] Insulin Aspart (Novolog) 3 unit SUBCUT TIDAC [facility] Last Admin: 01/28/17 11:27 Dose: 3 unit Insulin Detemir (Levemir) 8 unit SUBCUT BEDTIME [facility] Ketoconazole (Nizoral 2% Crm) 0 gm TOP BID PRN PRN Reason: Rash Last Admin: 01/28/17 09:01 Dose: 1 applic Levothyroxine Sodium (Levothyroxine) 112 mcg PO ACBREAKFAST [facility] Last Admin: 01/28/17 08:54 Dose: 112 mcg Lorazepam (Ativan) 1 mg IV Q6H PRN PRN Reason: Nausea/Vomiting Metolazone (Zaroxolyn) 2.5 mg PO MoWeFr PRN PRN Reason: Edema Nitroglycerin (Nitrostat) 0.4 mg SL ASDIRECTED PRN PRN Reason: Chest Pain Ondansetron HCl (Zofran Odt) 4 mg PO Q6H PRN PRN Reason: Nausea able to take PO Ondansetron HCl (Zofran) 4 mg IV Q4H PRN PRN Reason: Nausea/Vomiting [facility] Admin: 01/28/17 08:54 Dose: 150 mg Spironolactone (Aldactone) 25 mg PO BID [facility] Last Admin: 01/28/17 08:54 Dose: 25 mg Temazepam (Restoril) 15 mg PO BEDTIME PRN PRN Reason: Sleep Triamcinolone Acetonide (Kenalog 0.1% Crm) 0 gm TOP TID PRN PRN Reason: Rash Last Admin: 01/28/17 09:01 Dose: 1 applic Discontinued Medications Hydrocodone Bitart/Acetaminophen ([place] 325-5 Mg) 1 tab PO ONETIME ONE Stop: 01/27/17 23:45 Last Admin: 01/28/17 00:05 Dose: 1 tab Sodium Chloride (Normal Saline) 1,000 mls @ 75 mls/hr IV ASDIRECTED [facility] Ceftazidime 1 gm/ Sodium (Chloride) 50 mls @ 100 mls/hr IV Q24H [facility] - Exam Quality Assessment: DVT prophylaxis General: alert, cooperative, mild distress Lungs: Clear to auscultation, Normal respiratory effort Cardiovascular: Regular Rate, Regular Rhythm, No Murmurs Abdomen: bowel sounds present, soft, no tenderness, no distension Extremities: no edema Skin: warm, dry, intact - Problem List Review Problem List Initiated/Reviewed/Updated: Yes - My Orders Last 24 Hours: My Active Orders 01/28/17 11:37 Blood Culture x2 Reflex Set [OM.PC] Urgent 01/28/17 11:42 CULTURE BLOOD [BC] Urgent 01/28/17 11:46 CULTURE BLOOD [BC] Urgent 01/28/17 12:00 Azithromycin [Zithromax] 500 mg Sodium Chloride 0.9% [Normal Saline] 250 ml IV Q24H 01/28/17 13:14 Convert IV to Saline Lock [OM.PC] Routine 01/28/17 13:15 cefTRIAXone [Rocephin] 1 gm Sodium Chloride 0.9% [Normal Saline] 50 ml IV Q24H 01/29/17 05:00 BASIC METABOLIC PANEL,BMP [CHEM] Timed CBC WITH AUTO DIFF [HEME] Timed - Plan Plan:: ASSESSMENT / PLAN LEFT LUNG PNEUMONIA-present on admission, likely cause of progressive weakness and shortness of breath -Blood cultures pending -IV Rocephin and azithromycin -Supplemental oxygen as needed -Nebulizer therapy as needed Diabetes type 2, CKD -blood glucose check before meals and at bedtime -Insulin Neck fracture C3: 06/2016 -medicate for pain -referral to OT and PT HISTORY OF RECURRENT URINARY TRACT INFECTIONS-no evidence of urinary tract infection noted at the time of admission ULCER LEFT BUTTOCK-present on admission -Continue local cares Polyarthralgia -g. bed -pain medication ordered -evaluation by PT and OT Maintenance issues -Orders home meds: -Nutrition: diabetic diet -Simpson catheter; place in ER -DVT: SCD CODE STATUS: DNR/DNI Admission status: Admit to [address] [place] [address] Admission justification. This patient will be admitted for inpatient services and is medically appropriate meeting medical necessity for inpatient admission as outlined in my documentation. I reasonably expect the patient will require inpatient services that span. Time over 2 midnights. I reasonably expect this patient to be discharged or transferred within 96 hours after admission to the critical access hospital. Disposition; anticipate discharge to assisted after her hospital stay. Primary care provider: Dr. Ho and RAHEL Olvera
[2017-01-28] MEDS: cefTRIAXone 1 GM in Sodium Chloride 0.9% 50 ML IV SCH (14:23)
[2017-01-28] MEDS: Insulin Detemir 100 Units/ML 3 ML Pen SUBCUT SCH (21:25)
--- NOTE | 2017-01-28 21:42 | PCM.SN ---
- Free Text/Narrative Note: time: 21:30 call from [address] [place] [address] o; blood glucose 335 a; diabetes p; order low dose sliding scale insulin coverage. continue present plan of care
[2017-01-29] MEDS: Levothyroxine 112 MCG Tab PO SCH (07:31)
[2017-01-29] MEDS: Acetaminophen/HYDROcodone 325-5 MG Tab PO PRN ×2 (07:35→13:33)
[2017-01-29] MEDS: Insulin Aspart 100 Units/ML 3 ML Pen SUBCUT SCH ×4 (08:24→20:53)
[2017-01-29] MEDS: Gabapentin 300 MG Cap PO SCH ×3 (08:25→20:55)
[2017-01-29] MEDS: Spironolactone 25 MG Tab PO SCH ×2 (08:25→20:55)
[2017-01-29] MEDS: Aspirin 81 MG Tab.EC PO SCH (08:25)
[2017-01-29] MEDS: Citalopram 20 MG Tab PO SCH (08:25)
[2017-01-29] MEDS: Furosemide 20 MG Tab PO SCH ×2 (08:25→13:31)
[2017-01-29] MEDS: Azithromycin 500 MG in Sodium Chloride 0.9% 250 ML IV SCH ×2 (12:51→14:47)
--- NOTE | 2017-01-29 13:48 | PCM.PN ---
- General Info Date of Service: 01/29/17 Functional Status: Reports: tolerating diet, urinating - Review of Systems General: Reports: Weakness. Denies: Fever, Chills Pulmonary: Reports: shortness of breath, cough. Denies: pleuritic chest pain, sputum, hemoptysis, wheezing Cardiovascular: Reports: No Symptoms Gastrointestinal: Reports: No symptoms Systems Review Comment:: This patient has remained stable since yesterday, vital signs have been good and she has remained afebrile. White blood cell count has normalized but continues to have cough and some shortness of breath. - Patient Data Vitals - most recent: Last Vital Signs Temp 97.7 F 01/29/17 10:24 Pulse 75 01/29/17 10:24 Resp 16 01/29/17 10:24 BP 124/42 L 01/29/17 10:24 Pulse Ox 92 L 01/29/17 10:24 Weight - most recent: 194 lb 3.636 oz I&O - last 24 hours: Intake & Output 01/28/17 01/29/17 01/29/17 22:59 06:59 14:59 Intake Total 1164 140 Output Total 475 950 Balance 689 -810 Lab Results last 24 hrs: Laboratory Results - last 24 hr 01/29/17 01/29/17 Range/Units 05:15 05:15 WBC 6.1 (4.5-11.0) K/uL RBC 3.53 (3.30-5.50) M/uL Hgb 10.2 L (12.0-15.0) g/dL Hct 32.6 L (36.0-48.0) % MCV 92 (80-98) fL MCH 29 (27-31) pg MCHC 31 L (32-36) % Plt Count 211 (150-400) K/uL Neut % (Auto) 55 (36-66) % Lymph % (Auto) 29 (24-44) % [place] % (Auto) 12 H (2-6) % Eos % (Auto) 4 (2-4) % Baso % (Auto) 1 (0-1) % Sodium 140 (140-148) mmol/L Potassium 4.0 (3.6-5.2) mmol/L Chloride 105 (100-108) mmol/L Carbon Dioxide 33 H (21-32) mmol/L Anion Gap 6.0 (5.0-14.0) mmol/L BUN 38 H (7-18) mg/dL Creatinine 1.5 H (0.6-1.0) mg/dL Est Cr Clr Drug Dosing 19.96 mL/min Estimated GFR (MDRD) 33 L (>60) Glucose 81 (74-106) mg/dL Calcium 8.0 L (8.5-10.1) mg/dL Mariusz Results last 24 hrs: Microbiology 01/28/17 11:46 Aerobic Blood Culture - Preliminary Blood - Venous - Lab Draw NO GROWTH AFTER 1 DAY Anaerobic Blood Culture - Preliminary NO GROWTH AFTER 1 DAY 01/28/17 11:42 Aerobic Blood Culture - Preliminary Blood - Arm, Right NO GROWTH AFTER 1 DAY Anaerobic Blood Culture - Preliminary NO GROWTH AFTER 1 DAY Med Orders - Current: Current Medications Acetaminophen (Tylenol) 650 mg PO Q4H PRN PRN Reason: Pain (Mild 1-3)/fever Hydrocodone Bitart/Acetaminophen ([place] 325-5 Mg) 1 tab PO Q4H PRN PRN Reason: Pain (moderate 4-6) Last Admin: 01/29/17 13:33 Dose: 1 tab Albuterol (Proventil Neb Soln) 2.5 mg NEB Q4H PRN PRN Reason: Shortness Of Breath/wheezing Aspirin (Halfprin) 81 mg PO DAILY [facility] Last Admin: 01/29/17 08:25 Dose: 81 mg Bisacodyl (Dulcolax) 5 mg PO DAILY PRN PRN Reason: Constipation Citalopram Hydrobromide (Celexa) 60 mg PO DAILY [facility] Last Admin: 01/29/17 08:25 Dose: 60 mg Clonazepam (Klonopin) 0.25 mg PO BID PRN PRN Reason: Anxiety Docusate Sodium (Colace) 100 mg PO BID PRN PRN Reason: Constipation Furosemide (Lasix) 20 mg PO BIDDIURETIC [facility] Last Admin: 01/29/17 13:31 Dose: 20 mg Gabapentin (Neurontin) 300 mg PO TID [facility] Last Admin: 01/29/17 13:31 Dose: 300 mg Azithromycin 500 mg/ Sodium (Chloride) 250 mls @ 250 mls/hr IV Q24H [facility] Last Admin: 01/29/17 12:51 Dose: 250 mls/hr Ceftriaxone Sodium 1 gm/ (Sodium Chloride) 50 mls @ 100 mls/hr IV Q24H [facility] Last Admin: 01/28/17 14:23 Dose: 100 mls/hr Insulin Aspart (Novolog) 0 unit SUBCUT QIDACANDBED [facility] PRN Reason: Protocol Last Admin: 01/29/17 12:51 Dose: 2 units Insulin Detemir (Levemir) 8 unit SUBCUT BEDTIME [facility] Last Admin: 01/28/17 21:25 Dose: 8 units Ketoconazole (Nizoral 2% Crm) 0 gm TOP BID PRN PRN Reason: Rash Last Admin: 01/28/17 09:01 Dose: 1 applic Levothyroxine Sodium (Levothyroxine) 112 mcg PO ACBREAKFAST [facility] Last Admin: 01/29/17 07:31 Dose: 112 mcg Lorazepam (Ativan) 1 mg IV Q6H PRN PRN Reason: Nausea/Vomiting Metolazone (Zaroxolyn) 2.5 mg PO MoWeFr PRN PRN Reason: Edema Nitroglycerin (Nitrostat) 0.4 mg SL ASDIRECTED PRN PRN Reason: Chest Pain Ondansetron HCl (Zofran Odt) 4 mg PO Q6H PRN PRN Reason: Nausea able to take PO Ondansetron HCl (Zofran) 4 mg IV Q4H PRN PRN Reason: Nausea/Vomiting Ranitidine HCl (Zantac) 150 mg PO BIDAC [facility] Last Admin: 01/29/17 07:31 Dose: 150 mg Spironolactone (Aldactone) 25 mg PO BID [facility] Last Admin: 01/29/17 08:25 Dose: 25 mg Temazepam (Restoril) 15 mg PO BEDTIME PRN PRN Reason: Sleep Triamcinolone Acetonide (Kenalog 0.1% Crm) 0 gm TOP TID PRN PRN Reason: Rash Last Admin: 01/28/17 09:01 Dose: 1 applic Discontinued Medications Hydrocodone Bitart/Acetaminophen ([place] 325-5 Mg) 1 tab PO ONETIME ONE Stop: 01/27/17 23:45 Last Admin: 01/28/17 00:05 Dose: 1 tab Sodium Chloride (Normal Saline) 1,000 mls @ 75 mls/hr IV ASDIRECTED [facility] Ceftazidime 1 gm/ Sodium (Chloride) 50 mls @ 100 mls/hr IV Q24H [facility] Last Admin: 01/28/17 14:29 Dose: Not Given Insulin Aspart (Novolog) 3 unit SUBCUT TIDAC [facility] Last Admin: 01/28/17 16:51 Dose: 3 unit - Exam Quality Assessment: DVT prophylaxis General: alert, oriented, cooperative Lungs: Clear to auscultation, Normal respiratory effort Cardiovascular: Regular Rate, Regular Rhythm, Murmurs. No: Irregular Rhythm, Bradycardia, Tachycardia Abdomen: bowel sounds present, soft, no tenderness, no distension Extremities: no edema Skin: warm, dry, intact - Problem List Review Problem List Initiated/Reviewed/Updated: Yes - My Orders Last 24 Hours: My Active Orders 01/28/17 13:14 Convert IV to Saline Lock [OM.PC] Routine 01/28/17 14:00 cefTRIAXone [Rocephin] 1 gm Sodium Chloride 0.9% [Normal Saline] 50 ml IV Q24H 01/29/17 13:45 Cardiac Monitoring Discontinue [RC] Click to Edit 01/29/17 16:30 GLUCOSE POC LAB TO COLLECT [POC] QIDACANDBED 01/29/17 21:00 GLUCOSE POC LAB TO COLLECT [POC] QIDACANDBED 01/30/17 05:00 BASIC METABOLIC PANEL,BMP [CHEM] Timed - Plan Plan:: ASSESSMENT / PLAN LEFT LUNG PNEUMONIA-present on admission, likely cause of progressive weakness and shortness of breath -Blood cultures pending -IV Rocephin and azithromycin -Supplemental oxygen as needed -Nebulizer therapy as needed Diabetes type 2, CKD -blood glucose check before meals and at bedtime -Insulin Neck fracture C3: 06/2016 -medicate for pain -referral to OT and PT HISTORY OF RECURRENT URINARY TRACT INFECTIONS-no evidence of urinary tract infection noted at the time of admission ULCER LEFT BUTTOCK-present on admission -Continue local cares Polyarthralgia -g. bed -pain medication ordered -evaluation by PT and OT Maintenance issues -Orders home meds: -Nutrition: diabetic diet -Simpson catheter; place in ER -DVT: SCD CODE STATUS: DNR/DNI Admission status: Admit to [address] [place] [address] Admission justification. This patient will be admitted for inpatient services and is medically appropriate meeting medical necessity for inpatient admission as outlined in my documentation. I reasonably expect the patient will require inpatient services that span. Time over 2 midnights. I reasonably expect this patient to be discharged or transferred within 96 hours after admission to the [facility]. Disposition; anticipate discharge [facility] after her hospital stay. Primary care provider: Dr. Ho and RAHEL Olvera
[2017-01-29] MEDS: cefTRIAXone 1 GM in Sodium Chloride 0.9% 50 ML IV SCH (17:30)
[2017-01-29] MEDS: Insulin Detemir 100 Units/ML 3 ML Pen SUBCUT SCH (20:54)
[2017-01-30] MEDS: Acetaminophen/HYDROcodone 325-5 MG Tab PO PRN ×3 (03:40→20:11)
[2017-01-30] MEDS: Insulin Aspart 100 Units/ML 3 ML Pen SUBCUT SCH ×4 (07:28→21:28)
[2017-01-30] MEDS: Levothyroxine 112 MCG Tab PO SCH (07:28)
[2017-01-30] MEDS: Furosemide 20 MG Tab PO SCH ×2 (07:33→13:59)
[2017-01-30] MEDS: Aspirin 81 MG Tab.EC PO SCH (08:27)
[2017-01-30] MEDS: Spironolactone 25 MG Tab PO SCH ×2 (08:27→20:16)
[2017-01-30] MEDS: Citalopram 20 MG Tab PO SCH (08:27)
[2017-01-30] MEDS: Gabapentin 300 MG Cap PO SCH ×3 (08:27→20:16)
--- NOTE | 2017-01-30 10:10 | PCM.PN ---
- General Info Date of Service: 01/30/17 Functional Status: Reports: tolerating diet - Review of Systems General: Reports: Weakness. Denies: Fever, Chills Pulmonary: Reports: no symptoms Cardiovascular: Reports: No Symptoms Gastrointestinal: Reports: No symptoms Systems Review Comment:: This patient has been stable since yesterday, vital signs have been good and she has remained afebrile. Oral intake has been adequate, strength seems to be slightly improved. - Patient Data Vitals - most recent: Last Vital Signs Temp 97.9 F 01/30/17 07:30 Pulse 74 01/30/17 07:30 Resp 16 01/30/17 07:30 BP 129/50 L 01/30/17 07:30 Pulse Ox 94 L 01/30/17 07:30 Weight - most recent: 194 lb 3.636 oz I&O - last 24 hours: Intake & Output 01/29/17 01/30/17 01/30/17 22:59 06:59 14:59 Intake Total 1140 480 240 Output Total 700 950 Balance 440 -470 240 Lab Results last 24 hrs: Laboratory Results - last 24 hr 01/30/17 Range/Units 04:26 Sodium 143 (140-148) mmol/L Potassium 4.1 (3.6-5.2) mmol/L Chloride 104 (100-108) mmol/L Carbon Dioxide 32 (21-32) mmol/L Anion Gap 7.3 (5.0-14.0) mmol/L BUN 35 H (7-18) mg/dL Creatinine 1.5 H (0.6-1.0) mg/dL Est Cr Clr Drug Dosing 19.96 mL/min Estimated GFR (MDRD) 33 L (>60) Glucose 149 H (74-106) mg/dL Calcium 7.8 L (8.5-10.1) mg/dL Mariusz Results last 24 hrs: Microbiology 01/28/17 11:46 Aerobic Blood Culture - Preliminary Blood - Venous - Lab Draw NO GROWTH AFTER 1 DAY Anaerobic Blood Culture - Preliminary NO GROWTH AFTER 1 DAY 01/28/17 11:42 Aerobic Blood Culture - Preliminary Blood - Arm, Right NO GROWTH AFTER 1 DAY Anaerobic Blood Culture - Preliminary NO GROWTH AFTER 1 DAY Med Orders - Current: Current Medications Acetaminophen (Tylenol) 650 mg PO Q4H PRN PRN Reason: Pain (Mild 1-3)/fever Hydrocodone Bitart/Acetaminophen ([place] 325-5 Mg) 1 tab PO Q4H PRN PRN Reason: Pain (moderate 4-6) Last Admin: 01/30/17 03:40 Dose: 1 tab Albuterol (Proventil Neb Soln) 2.5 mg NEB Q4H PRN PRN Reason: Shortness Of Breath/wheezing Aspirin (Halfprin) 81 mg PO DAILY [facility] Last Admin: 01/30/17 08:27 Dose: 81 mg Bisacodyl (Dulcolax) 5 mg PO DAILY PRN PRN Reason: Constipation Citalopram Hydrobromide (Celexa) 60 mg PO DAILY [facility] Last Admin: 01/30/17 08:27 Dose: 60 mg Clonazepam (Klonopin) 0.25 mg PO BID PRN PRN Reason: Anxiety Docusate Sodium (Colace) 100 mg PO BID PRN PRN Reason: Constipation Furosemide (Lasix) 20 mg PO BIDDIURETIC [facility] Last Admin: 01/30/17 07:33 Dose: 20 mg Gabapentin (Neurontin) 300 mg PO TID [facility] Last Admin: 01/30/17 08:27 Dose: 300 mg Azithromycin 500 mg/ Sodium (Chloride) 250 mls @ 250 mls/hr IV Q24H [facility] Last Admin: 01/29/17 14:47 Dose: 250 mls/hr Ceftriaxone Sodium 1 gm/ (Sodium Chloride) 50 mls @ 100 mls/hr IV Q24H [facility] Last Admin: 01/29/17 17:30 Dose: 100 mls/hr Insulin Aspart (Novolog) 0 unit SUBCUT QIDACANDBED [facility] PRN Reason: Protocol Last Admin: 01/30/17 07:28 Dose: Not Given Insulin Detemir (Levemir) 8 unit SUBCUT BEDTIME [facility] Last Admin: 01/29/17 20:54 Dose: 8 units Ketoconazole (Nizoral 2% Crm) 0 gm TOP BID PRN PRN Reason: Rash Last Admin: 01/28/17 09:01 Dose: 1 applic Levothyroxine Sodium (Levothyroxine) 112 mcg PO ACBREAKFAST [facility] Last Admin: 01/30/17 07:28 Dose: 112 mcg Lorazepam (Ativan) 1 mg IV Q6H PRN PRN Reason: Nausea/Vomiting Last Admin: 01/28/17 02:40 Dose: 1 mg Metolazone (Zaroxolyn) 2.5 mg PO MoWeFr PRN PRN Reason: Edema Nitroglycerin (Nitrostat) 0.4 mg SL ASDIRECTED PRN PRN Reason: Chest Pain Ondansetron HCl (Zofran Odt) 4 mg PO Q6H PRN PRN Reason: Nausea able to take PO Ondansetron HCl (Zofran) 4 mg IV Q4H PRN PRN Reason: Nausea/Vomiting Ranitidine HCl (Zantac) 150 mg PO BIDAC [facility] Last Admin: 01/30/17 07:29 Dose: 150 mg Spironolactone (Aldactone) 25 mg PO BID [facility] Last Admin: 01/30/17 08:27 Dose: 25 mg Temazepam (Restoril) 15 mg PO BEDTIME PRN PRN Reason: Sleep Triamcinolone Acetonide (Kenalog 0.1% Crm) 0 gm TOP TID PRN PRN Reason: Rash Last Admin: 01/28/17 09:01 Dose: 1 applic Discontinued Medications Hydrocodone Bitart/Acetaminophen ([place] 325-5 Mg) 1 tab PO ONETIME ONE Stop: 01/27/17 23:45 Last Admin: 01/28/17 00:05 Dose: 1 tab Sodium Chloride (Normal Saline) 1,000 mls @ 75 mls/hr IV ASDIRECTED [facility] Ceftazidime 1 gm/ Sodium (Chloride) 50 mls @ 100 mls/hr IV Q24H [facility] Last Admin: 01/28/17 14:29 Dose: Not Given Insulin Aspart (Novolog) 3 unit SUBCUT TIDAC [facility] Last Admin: 01/28/17 16:51 Dose: 3 unit - Exam Quality Assessment: DVT prophylaxis General: alert, oriented, cooperative, mild distress Lungs: Normal respiratory effort, Rales. No: Decreased breath sounds, Crackles , Rhonchi, Rub, Stridor, Wheezing Cardiovascular: Regular Rate, Regular Rhythm, Murmurs Abdomen: bowel sounds present, soft, no tenderness, no distension Extremities: no edema Skin: warm, dry, intact - Problem List Review Problem List Initiated/Reviewed/Updated: Yes - My Orders Last 24 Hours: My Active Orders 01/29/17 13:45 Cardiac Monitoring Discontinue [RC] Click to Edit 01/30/17 11:30 GLUCOSE POC LAB TO COLLECT [POC] QIDACANDBED 01/30/17 16:30 GLUCOSE POC LAB TO COLLECT [POC] QIDACANDBED 01/30/17 21:00 GLUCOSE POC LAB TO COLLECT [POC] QIDACANDBED - Plan Plan:: ASSESSMENT / PLAN LEFT LUNG PNEUMONIA-present on admission, likely cause of progressive weakness and shortness of breath -Blood cultures negative so far -IV Rocephin and azithromycin -Supplemental oxygen as needed -Nebulizer therapy as needed Diabetes type 2, CKD -blood glucose check before meals and at bedtime -Insulin Neck fracture C3: 06/2016 -medicate for pain -referral to OT and PT HISTORY OF RECURRENT URINARY TRACT INFECTIONS-no evidence of urinary tract infection noted at the time of admission ULCER LEFT BUTTOCK-present on admission -Continue local cares Polyarthralgia -g. bed -pain medication ordered -evaluation by PT and OT Maintenance issues -Orders home meds: -Nutrition: diabetic diet -Simpson catheter; place in ER -DVT: SCD CODE STATUS: DNR/DNI Admission status: Admit to [address] [place] [address] Admission justification. This patient will be admitted for inpatient services and is medically appropriate meeting medical necessity for inpatient admission as outlined in my documentation. I reasonably expect the patient will require inpatient services that span. Time over 2 midnights. I reasonably expect this patient to be discharged or transferred within 96 hours after admission to the [facility]. Disposition; anticipate discharge to shelter tomorrow Primary care provider: Dr. Ho and RAHEL Olvera
[2017-01-30] MEDS: Triamcinolone Acetonide 0.1% Crm 80 GM Tube TOP PRN (10:33)
--- NOTE | 2017-01-30 10:59 | PCM.DCSUM1 ---
Discharge Summary - Hospital Course Brief History: This patient is an 86-year-old woman who was admitted through the emergency department with progressive weakness and shortness of breath secondary to pneumonia. - Discharge Data Discharge Date: 01/31/17 Discharge Disposition: DC/Tfer to SNF 03 Condition: Fair - Discharge Diagnosis/Problem(s) (1) Pneumonia SNOMED Code(s): 504638943 ICD Code: J18.9 - PNEUMONIA, UNSPECIFIED ORGANISM Status: Acute (2) Generalized weakness SNOMED Code(s): 85975522 ICD Code: R53.1 - WEAKNESS Status: Acute Priority: High (3) Diabetes mellitus with kidney disease SNOMED Code(s): 17765671, 64583774 ICD Code: E11.21 - TYPE 2 DIABETES MELLITUS WITH DIABETIC NEPHROPATHY Status: Acute Priority: High (4) Chronic kidney disease stage 3 SNOMED Code(s): 682908198 ICD Code: N18.3 - CHRONIC KIDNEY DISEASE, STAGE 3 (MODERATE) Status: Chronic Priority: High - Patient Summary/Data Consults: Consultations 01/28/17 02:21 Consult to Operations Representative [CONS] Routine Comment: Physician Instructions: OT Evaluation and Treatment [CONS] Routine Please Evaluate and Treat. OT Reason for Consult: Discharge Planning This query below is only for informational purposes and is not editable. PT Evaluation and Treatment [CONS] Routine Please Evaluate and Treat. PT Reason for Consult: Strengthening This query below is only for informational purposes and is not editable. Hospital Course: This patient is an 86-year-old woman who was admitted through the emergency department with progressive weakness, cough, and shortness of breath. Evaluation in the emergency department showed a normal white blood cell count, chest x-ray showed evidence of a left lung infiltrate. She was given IV fluids for hydration and after cultures were obtained worse started on IV antibiotic therapy for pneumonia including Rocephin and azithromycin. Urine was obtained and showed no evidence of active infection. After initial hydration IV fluids were discontinued. She improved over the next few days of hospitalization and was stable at the time of discharge. Glucose levels were monitored during hospital stay for ongoing management of her diabetes she was continued on her usual outpatient regimen. She was seen by physical therapy work on overall strengthening. Because of ongoing significant weakness decision was made to pursue correction placement for restorative physical therapy and occupational therapy. By the time of discharge she will completed an adequate course of antibiotics for management of her pneumonia. Activity will be as tolerated and she will resume her usual diet. - Patient Instructions Diet: Usual Diet as Tolerated Activity: As Tolerated - Discharge Plan Home Medications: Home Meds Aspirin [Ecotrin] 81 mg PO DAILY 10/18/13 [History] Furosemide [Lasix] 20 mg PO BID 10/18/13 [History] Hydrocodone/Acetaminophen [[place] 10-325] 0.5 - 1 tab PO BID PRN 10/18/13 [ History] Ketoconazole [Nizoral 2% Crm] 1 applic TOP BID PRN 10/18/13 [History] Levothyroxine Sodium [Synthroid] 112 mcg PO DAILY 10/18/13 [History] Nitroglycerin [Nitrostat] 0.4 mg SL ASDIRECTED PRN 10/18/13 [History] Ranitidine [Zantac] 150 mg PO BID 10/18/13 [History] Triamcinolone Acetonide [Kenalog 0.1% Crm] 1 applic TOP TID PRN 10/18/13 [ History] Citalopram [Citalopram HBr] 60 mg PO DAILY 12/08/13 [History] Gabapentin [Neurontin] 300 mg PO TID 04/15/15 [History] Spironolactone [Aldactone] 25 mg PO BID 04/15/15 [History] clonazePAM [Klonopin] 0.5 tab PO BID PRN 04/15/15 [History] Diclofenac Sodium [Voltaren 1% Gel] 1 applic TOP BID PRN 04/17/16 [History] Metolazone [Zaroxolyn] 2.5 mg PO .MWF PRN 04/17/16 [History] Insulin Aspart [NovoLOG] 3 unit SQ TIDAC 07/22/16 [History] Insulin Detemir [Levemir] 8 unit SUBCUT BEDTIME 07/22/16 [History] Bifidobacterium Infantis [Align] 1 cap PO BID 01/28/17 [History] Calcitriol [Rocaltrol] 1 cap PO DAILY 01/28/17 [History] Sennosides/Docusate Sodium [Sennosides-Docusate Sodium] 1 tab PO BID PRN [History] Referrals: PCP,None [Primary Care Provider] - - Patient Data Vitals - Most Recent: Last Vital Signs Temp 97.9 F 01/30/17 07:30 Pulse 74 01/30/17 07:30 Resp 16 01/30/17 07:30 BP 129/50 L 01/30/17 07:30 Pulse Ox 94 L 01/30/17 07:30 Weight - Most Recent: 194 lb 3.636 oz I&O - Last 24 hours: Intake & Output 01/29/17 01/30/17 01/30/17 22:59 06:59 14:59 Intake Total 1140 480 240 Output Total 700 950 Balance 440 -470 240 Lab Results - Last 24 hrs: Laboratory Results - last 24 hr 01/30/17 Range/Units 04:26 Sodium 143 (140-148) mmol/L Potassium 4.1 (3.6-5.2) mmol/L Chloride 104 (100-108) mmol/L Carbon Dioxide 32 (21-32) mmol/L Anion Gap 7.3 (5.0-14.0) mmol/L BUN 35 H (7-18) mg/dL Creatinine 1.5 H (0.6-1.0) mg/dL Est Cr Clr Drug Dosing 19.96 mL/min Estimated GFR (MDRD) 33 L (>60) Glucose 149 H (74-106) mg/dL Calcium 7.8 L (8.5-10.1) mg/dL AAKASH Results - Last 24 hrs: Microbiology 01/28/17 11:46 Aerobic Blood Culture - Preliminary Blood - Venous - Lab Draw NO GROWTH AFTER 1 DAY Anaerobic Blood Culture - Preliminary NO GROWTH AFTER 1 DAY 01/28/17 11:42 Aerobic Blood Culture - Preliminary Blood - Arm, Right NO GROWTH AFTER 1 DAY Anaerobic Blood Culture - Preliminary NO GROWTH AFTER 1 DAY Med Orders - Current: Current Medications Acetaminophen (Tylenol) 650 mg PO Q4H PRN PRN Reason: Pain (Mild 1-3)/fever Hydrocodone Bitart/Acetaminophen ([place] 325-5 Mg) 1 tab PO Q4H PRN PRN Reason: Pain (moderate 4-6) Last Admin: 01/30/17 03:40 Dose: 1 tab Albuterol (Proventil Neb Soln) 2.5 mg NEB Q4H PRN PRN Reason: Shortness Of Breath/wheezing Aspirin (Halfprin) 81 mg PO DAILY [facility] Last Admin: 05/06/17 08:27 Dose: 81 mg Bisacodyl (Dulcolax) 5 mg PO DAILY PRN PRN Reason: Constipation Citalopram Hydrobromide (Celexa) 60 mg PO DAILY [facility] Last Admin: 01/30/17 08:27 Dose: 60 mg Clonazepam (Klonopin) 0.25 mg PO BID PRN PRN Reason: Anxiety Docusate Sodium (Colace) 100 mg PO BID PRN PRN Reason: Constipation Furosemide (Lasix) 20 mg PO BIDDIURETIC [facility] Last Admin: 01/30/17 07:33 Dose: 20 mg Gabapentin (Neurontin) 300 mg PO TID [facility] Last Admin: 01/30/17 08:27 Dose: 300 mg Azithromycin 500 mg/ Sodium (Chloride) 250 mls @ 250 mls/hr IV Q24H [facility] Last Admin: 01/29/17 14:47 Dose: 250 mls/hr Ceftriaxone Sodium 1 gm/ (Sodium Chloride) 50 mls @ 100 mls/hr IV Q24H [facility] Last Admin: 01/29/17 17:30 Dose: 100 mls/hr Insulin Aspart (Novolog) 0 unit SUBCUT QIDACANDBED [facility] PRN Reason: Protocol Last Admin: 01/30/17 07:28 Dose: Not Given Insulin Detemir (Levemir) 8 unit SUBCUT BEDTIME [facility] Last Admin: 01/29/17 20:54 Dose: 8 units Ketoconazole (Nizoral 2% Crm) 0 gm TOP BID PRN PRN Reason: Rash Last Admin: 01/28/17 09:01 Dose: 1 applic Levothyroxine Sodium (Levothyroxine) 112 mcg PO ACBREAKFAST [facility] Last Admin: 01/30/17 07:28 Dose: 112 mcg Lorazepam (Ativan) 1 mg IV Q6H PRN PRN Reason: Nausea/Vomiting Last Admin: 01/28/17 02:40 Dose: 1 mg Metolazone (Zaroxolyn) 2.5 mg PO MoWeFr PRN PRN Reason: Edema Nitroglycerin (Nitrostat) 0.4 mg SL ASDIRECTED PRN PRN Reason: Chest Pain Ondansetron HCl (Zofran Odt) 4 mg PO Q6H PRN PRN Reason: Nausea able to take PO Ondansetron HCl (Zofran) 4 mg IV Q4H PRN PRN Reason: Nausea/Vomiting Ranitidine HCl (Zantac) 150 mg PO BIDAC [facility] Last Admin: 01/30/17 07:29 Dose: 150 mg Spironolactone (Aldactone) 25 mg PO BID [facility] Last Admin: 01/30/17 08:27 Dose: 25 mg Temazepam (Restoril) 15 mg PO BEDTIME PRN PRN Reason: Sleep Triamcinolone Acetonide (Kenalog 0.1% Crm) 0 gm TOP TID PRN PRN Reason: Rash Last Admin: 01/30/17 10:33 Dose: 1 applic Discontinued Medications Hydrocodone Bitart/Acetaminophen ([place] 325-5 Mg) 1 tab PO ONETIME ONE Stop: 01/27/17 23:45 Last Admin: 01/28/17 00:05 Dose: 1 tab Sodium Chloride (Normal Saline) 1,000 mls @ 75 mls/hr IV ASDIRECTED [facility] Ceftazidime 1 gm/ Sodium (Chloride) 50 mls @ 100 mls/hr IV Q24H [facility] Last Admin: 01/28/17 14:29 Dose: Not Given Insulin Aspart (Novolog) 3 unit SUBCUT TIDAC [facility] Last Admin: 01/28/17 16:51 Dose: 3 unit *Q Meaningful Use (DIS) - VTE *Q VTE Criteria *Q: - Stroke *Q Stroke Criteria *Q: - AMI *Q AMI Criteria *Q:
[2017-01-30] MEDS: Azithromycin 500 MG in Sodium Chloride 0.9% 250 ML IV SCH (12:28)
[2017-01-30] MEDS: cefTRIAXone 1 GM in Sodium Chloride 0.9% 50 ML IV SCH (13:58)
[2017-01-30] MEDS: Insulin Detemir 100 Units/ML 3 ML Pen SUBCUT SCH (21:29)
[2017-01-31] MEDS: Acetaminophen/HYDROcodone 325-5 MG Tab PO PRN ×2 (00:47→08:07)
[2017-01-31 07:45] VITALS: BP 152/58
[2017-01-31] MEDS: Citalopram 20 MG Tab PO SCH ×2 (07:54→08:32)
[2017-01-31] MEDS: Levothyroxine 112 MCG Tab PO SCH (07:55)
[2017-01-31] MEDS: Furosemide 20 MG Tab PO SCH (07:56)
[2017-01-31] MEDS: Insulin Aspart 100 Units/ML 3 ML Pen SUBCUT SCH (07:56)
[2017-01-31] MEDS: Spironolactone 25 MG Tab PO SCH ×2 (07:56→08:31)
[2017-01-31] MEDS: Aspirin 81 MG Tab.EC PO SCH ×2 (07:57→08:32)
[2017-01-31] MEDS: Gabapentin 300 MG Cap PO SCH ×2 (07:57→08:32)
== END 2017-01-31 09:26 | DRG 195 ==
LOC: JP.ED 22:37 → JP.MS 01-28 01:24
PROVIDERS: ADMIT Hospitalist; ATTEND Hospitalist
DX: J18.9 Pneumonia, unspecified organism (principal); E03.9 Hypothyroidism, unspecified; E11.21 Type 2 diabetes mellitus with diabetic nephropathy; E11.622 Type 2 diabetes mellitus with other skin ulcer; E11.319 Type 2 diabetes mellitus with unspecified diabetic retinopathy without macular edema; Z66 Do not resuscitate; N18.3 Chronic kidney disease, stage 3 (moderate); L89.329 Pressure ulcer of left buttock, unspecified stage; Z79.4 Long term (current) use of insulin; R53.1 Weakness; Z87.81 Personal history of (healed) traumatic fracture; I25.10 Atherosclerotic heart disease of native coronary artery without angina pectoris; K43.9 Ventral hernia without obstruction or gangrene; Z98.1 Arthrodesis status; M19.90 Unspecified osteoarthritis, unspecified site; I35.0 Nonrheumatic aortic (valve) stenosis; I25.2 Old myocardial infarction; M54.9 Dorsalgia, unspecified; G89.29 Other chronic pain; Z95.5 Presence of coronary angioplasty implant and graft; H54.7 Unspecified visual loss; H91.90 Unspecified hearing loss, unspecified ear; K21.9 Gastro-esophageal reflux disease without esophagitis; K59.00 Constipation, unspecified; Z87.440 Personal history of urinary (tract) infections; I87.2 Venous insufficiency (chronic) (peripheral); R32 Unspecified urinary incontinence; Z79.82 Long term (current) use of aspirin; Z88.6 Allergy status to analgesic agent; Z88.1 Allergy status to other antibiotic agents; Z88.8 Allergy status to other drugs, medicaments and biological substances
CPT/HCPCS: 51702; 71010 ×2; 81001; 85027; 87086; 93005; 99285 ×2; A9270; 36415; 74176; 74176-26; 80048; 80053; 82962; 84484; 85025; 87040; 93010; 97110-GP; 97162-GP; 97165-GO; 97530-GP; J0456; J0696; J2060; J7050